=== PATIENT | male | born 1995 | race Caucasian/White ===

== ENCOUNTER 2016-10-29 20:48 | Emergency (ER) | payer OTHER ==
[~2016-10-29] VITALS: Ht 188 cm; Wt 59.1 kg
[2016-10-29] MEDS ORDERED: MAALOX/LIDOCAINE/NYSTATIN SUSP 5 ML ORAL.SYG PO ONE (23:30)
[2016-10-30 00:11] VITALS: BP 120/80
== END 2016-10-30 00:15 | disposition home or self-care (01) ==
LOC: EMS 20:53
DX: K12.1 Other forms of stomatitis (principal); F17.210 Nicotine dependence, cigarettes, uncomplicated; F12.90 Cannabis use, unspecified, uncomplicated; F19.90 Other psychoactive substance use, unspecified, uncomplicated
CPT/HCPCS: 99282

== ENCOUNTER 2016-11-15 07:22 | Inpatient (IN) | payer MEDICAID, OTHER ==
[~2016-11-15] VITALS: Ht 188 cm; Wt 63.6 kg
[2016-11-15] MEDS ORDERED: DIVA125T PO (07:43)
[2016-11-15] MEDS ORDERED: BUPR75 PO (07:43)
[2016-11-15 08:16] LABS: BASOPHILS # (AUTO) 0.06 K/uL (0.00-0.20); BASOPHILS % (AUTO) 0.7 % (0.0-2.0); EOSINOPHILS # (AUTO) 0.08 K/uL (0.00-0.70); EOSINOPHILS % (AUTO) 1.04 % (1.0-6.0); HEMATOCRIT 43.9 % (41-53); LYMPHOCYTES % (AUTO) 12.5 % (22.0-44.0); MEAN CORPUSCULAR HEMOGLOBIN 31.8 pg (26.0-34.0); MEAN CORPUSCULAR HGB CONC 34.1 G/dL (31.0-37.0); MEAN CORPUSCULAR VOLUME 93 fL (80-100); MONOCYTES # (AUTO) 1.1 K/uL (0.1-1.0); NEUTROPHILS # (AUTO) 5.8 K/uL (1.8-7.7); NEUTROPHILS % (AUTO) 71.9 % (40.0-70.0); PLATELET COUNT (AUTO) 295 K/uL (150-450); RED BLOOD CELL COUNT(AUTO) 4.71 MIL/uL (4.50-5.90); RED CELL DISTRIBUTION WIDTH 13.8 % (11.5-14.5); WHITE BLOOD COUNT (AUTO) 8.1 K/uL (4.5-11.0)
[2016-11-15 08:24] LABS: ANION GAP 9 mmol/L (8-16); CALCIUM, TOTAL 9.3 mg/dL (8.8-10.5); CARBON DIOXIDE 29 mmol/L (22-29); CHLORIDE 102 mmol/L (98-107); CREATININE 0.88 mg/dL (0.60-1.30); GLOMERULAR FILTR. RATE CALC > 60 mL/min (>60); POTASSIUM 4.3 mmol/L (3.5-5.1); SODIUM SERUM 140 mmol/L (136-145); UREA NITROGEN, BLOOD 14 mg/dL (7-18)
[2016-11-15 08:30] LABS: ALANINE AMINOTRANSFERASE 94 U/L (12-78); ALBUMIN 4.4 g/dL (3.4-5.0); ASPARTATE AMINOTRANSFERASE 152 U/L (15-37); BILIRUBIN,TOTAL 1.4 mg/dL (0.1-1.0); TOTAL PROTEIN, SERUM 8.1 g/dL (6.4-8.2)
[2016-11-15] MEDS ORDERED: ZOLPIDEM TARTRATE 10 MG TABLET PO PRN (09:45)
[2016-11-15] MEDS ORDERED: HALOPERIDOL 5 MG TABLET PO PRN (09:45)
[2016-11-15 11:15] VITALS: BP 136/68
[2016-11-15] MEDS ORDERED: BACITRACIN 28.4 GM OINTMENT TP PRN (15:15)
[2016-11-15] MEDS: LORazepam 2 MG TABLET PO PRN (21:53)
[2016-11-16 08:15] VITALS: BP 124/83
[2016-11-16] MEDS ORDERED: ALBUTEROL SULFATE HFA 90 MCG/PUFF 8 GM INHALER IH PRN (09:30)
[2016-11-16] MEDS ORDERED: IBUPROFEN 600 MG TABLET PO PRN (09:30)
[2016-11-16] MEDS ORDERED: CloNIDine HCL 0.1 MG TABLET PO PRN (09:30)
[2016-11-16] MEDS ORDERED: ACETAMINOPHEN 325 MG TABLET PO PRN (09:30)
[2016-11-16] MEDS ORDERED: MAGNESIUM HYDROXIDE SUSPENSION 30 ML UDCUP PO PRN (09:30)
[2016-11-16] MEDS ORDERED: PETROLATUM,WHITE 71 GM JELLY TP PRN (09:30)
[2016-11-16] MEDS ORDERED: MAG HYDROX/AL HYDROX/SIMETH ES 30 ML SUSPENSION UDCUP PO PRN (09:30)
[2016-11-16] MEDS ORDERED: ONDANSETRON HCL 4 MG TABLET PO PRN (09:30)
[2016-11-16] MEDS ORDERED: LOPERAMIDE HCL 2 MG CAPSULE PO PRN (09:30)
[2016-11-16] MEDS ORDERED: BENZOCAINE/MENTHOL LOZENGE [8 LOZENGES/PACKET] MM PRN (09:30)
[2016-11-16] MEDS: NICOTINE 21 MG/24 HOUR PATCH TD SCH (12:02)
[2016-11-16] MEDS: MUPIROCIN CALCIUM 2% 15 GM CREAM TP SCH ×2 (12:02→16:11)
[2016-11-16 16:00] VITALS: BP 115/75
[2016-11-16] MEDS: HALOPERIDOL 5 MG TABLET PO SCH (20:04)
[2016-11-17 08:00] LABS: CHOL/HDL RATIO 2.2 (4.2-7.3); THYROID STIMULATING HORMONE 1.91 uIU/mL (0.36-3.74)
[2016-11-17 08:05] VITALS: BP 124/76
[2016-11-17] MEDS: HALOPERIDOL 5 MG TABLET PO SCH ×2 (10:39→20:11)
[2016-11-17] MEDS: MUPIROCIN CALCIUM 2% 15 GM CREAM TP SCH ×2 (10:39→16:27)
[2016-11-17] MEDS: OMEPRAZOLE 20 MG CAPSULE PO SCH (10:39)
[2016-11-17] MEDS: NICOTINE 21 MG/24 HOUR PATCH TD SCH (10:39)
[2016-11-17] MEDS: DOCUSATE SODIUM 100 MG CAPSULE PO SCH (10:39)
[2016-11-17] MEDS ORDERED: CAMPHOR/MENTHOL/PHENOL 10 GM OINTMENT TP PRN (12:00)
[2016-11-17] MEDS: LORazepam 2 MG TABLET PO PRN (16:20)
[2016-11-18 08:40] VITALS: BP 110/69
[2016-11-18] MEDS: OMEPRAZOLE 20 MG CAPSULE PO SCH (09:02)
[2016-11-18] MEDS: NICOTINE 21 MG/24 HOUR PATCH TD SCH (09:02)
[2016-11-18] MEDS: LORazepam 2 MG TABLET PO PRN ×2 (09:02→16:43)
[2016-11-18] MEDS: DOCUSATE SODIUM 100 MG CAPSULE PO SCH (09:02)
[2016-11-18] MEDS: HALOPERIDOL 5 MG TABLET PO SCH (09:02)
[2016-11-18] MEDS: MUPIROCIN CALCIUM 2% 15 GM CREAM TP SCH ×2 (09:02→16:41)
[2016-11-18 16:58] VITALS: BP 115/66
[2016-11-18] MEDS ORDERED: HALOPERIDOL 10 MG TABLET PO SCH (21:00)
[2016-11-19 05:41] LABS: HEPATITIS Bs ANTIGEN SCREEN P Negative (Negative); HEPATITIS C AB SCREEN <0.1 s/co ratio (0.0-0.9)
[2016-11-19] MEDS: NICOTINE 21 MG/24 HOUR PATCH TD SCH (08:57)
[2016-11-19] MEDS: MUPIROCIN CALCIUM 2% 15 GM CREAM TP SCH (08:58)
[2016-11-19] MEDS: OMEPRAZOLE 20 MG CAPSULE PO SCH (08:58)
[2016-11-19] MEDS: DOCUSATE SODIUM 100 MG CAPSULE PO SCH (08:58)
[2016-11-19] MEDS ORDERED: FISH OIL/OMEGA-3 FATTY ACIDS 500 MG CAPSULE PO SCH (09:00)
[2016-11-19] MEDS ORDERED: HALOPERIDOL 5 MG TABLET PO SCH (09:00)
[2016-11-19] MEDS ORDERED: CHOLECALCIFEROL (VIT D3) 1,000 UNITS TABLET PO SCH (09:00)
[2016-11-19 09:19] VITALS: BP 110/73
[2016-11-19] MEDS ORDERED: DSS100 PO (12:03)
[2016-11-19] MEDS ORDERED: OMEG100019 PO (12:05)
[2016-11-19] MEDS ORDERED: HALO5 PO (12:05)
[2016-11-19] MEDS ORDERED: OMEP20 PO (12:06)
[2016-11-19] MEDS ORDERED: HALO10 PO (12:06)
[2016-11-19] MEDS ORDERED: VITAD1000 PO (12:07)
[2016-11-19] MEDS ORDERED: OMEG100033 PO (12:31)
== END 2016-11-19 15:10 | disposition home or self-care (01) | DRG 753 ==
LOC: EMS 07:23 → 3EI 10:52
DX: F31.9 Bipolar disorder, unspecified (principal); R45.851 Suicidal ideations; F20.0 Paranoid schizophrenia; R74.0 Nonspecific elevation of levels of transaminase and lactic acid dehydrogenase [LDH]; F43.10 Post-traumatic stress disorder, unspecified; M54.5 Low back pain; K59.00 Constipation, unspecified; F17.210 Nicotine dependence, cigarettes, uncomplicated; F11.90 Opioid use, unspecified, uncomplicated; F15.10 Other stimulant abuse, uncomplicated; Z79.899 Other long term (current) drug therapy; Z59.0 Homelessness; Z71.51 Drug abuse counseling and surveillance of drug abuser; Z71.6 Tobacco abuse counseling; T14.8 Other injury of unspecified body region; X58.XXXA Exposure to other specified factors, initial encounter; Y93.89 Activity, other specified; Y92.89 Other specified places as the place of occurrence of the external cause; Y99.8 Other external cause status
CPT/HCPCS: 80074; 82306; 84443; 99285; G0480; Q0162

== ENCOUNTER 2017-05-01 16:46 | Emergency (ER) | payer MEDICAID, OTHER ==
[~2017-05-01] VITALS: Ht 175.3 cm; Wt 65.9 kg
[~2017-05-01 16:46] MED LIST: DSS100 PO; HALO10 PO; HALO5 PO; OMEG100033 PO; OMEP20 PO; VITAD1000 PO
[2017-05-01] MEDS ORDERED: IBUPROFEN 800 MG TABLET PO ONE (18:00)
[2017-05-01 18:31] VITALS: BP 146/102
== END 2017-05-01 18:55 | disposition home or self-care (01) ==
LOC: EDUNIT# 16:46 → EMS 16:48
DX: K12.0 Recurrent oral aphthae (principal); K13.70 Unspecified lesions of oral mucosa; F17.210 Nicotine dependence, cigarettes, uncomplicated; F15.10 Other stimulant abuse, uncomplicated; F25.9 Schizoaffective disorder, unspecified; F43.10 Post-traumatic stress disorder, unspecified; Z59.0 Homelessness
CPT/HCPCS: 99283; 99406

== ENCOUNTER 2017-05-03 03:05 | Emergency (ER) | payer OTHER ==
[~2017-05-03] VITALS: Ht 188 cm; Wt 68.2 kg
[2017-05-03 03:50] LABS: BASOPHILS # (AUTO) 0.08 K/uL (0.00-0.20); BASOPHILS % (AUTO) 1.1 % (0.0-2.0); EOSINOPHILS # (AUTO) 0.39 K/uL (0.00-0.70); HEMATOCRIT 37.7 % (41-53); HEMOGLOBIN 12.8 g/dL (13.5-17.5); LYMPHOCYTES # (AUTO) 1.7 K/uL (1.0-4.8); LYMPHOCYTES % (AUTO) 25.1 % (22.0-44.0); MEAN CORPUSCULAR HEMOGLOBIN 31.2 pg (26.0-34.0); MEAN CORPUSCULAR VOLUME 92 fL (80-100); MONOCYTES # (AUTO) 0.8 K/uL (0.1-1.0); MONOCYTES % (AUTO) 11.5 % (2.0-9.0); NEUTROPHILS # (AUTO) 3.9 K/uL (1.8-7.7); NEUTROPHILS % (AUTO) 56.5 % (40.0-70.0); PLATELET COUNT (AUTO) 205 K/uL (150-450); RED BLOOD CELL COUNT(AUTO) 4.12 MIL/uL (4.50-5.90); RED CELL DISTRIBUTION WIDTH 13.2 % (11.5-14.5); WHITE BLOOD COUNT (AUTO) 6.9 K/uL (4.5-11.0)
[2017-05-03 04:01] LABS: ANION GAP 9 mmol/L (8-16); CALCIUM, TOTAL 9.2 mg/dL (8.8-10.5); CARBON DIOXIDE 28 mmol/L (22-29); CHLORIDE 107 mmol/L (98-107); CREATININE 0.69 mg/dL (0.60-1.30); GLOMERULAR FILTR. RATE CALC > 60 mL/min (>60); POTASSIUM 4.3 mmol/L (3.5-5.1); SODIUM SERUM 144 mmol/L (136-145); UREA NITROGEN, BLOOD 10 mg/dL (7-18)
[2017-05-03 04:08] LABS: ALANINE AMINOTRANSFERASE 79 U/L (12-78); ALBUMIN 3.7 g/dL (3.4-5.0); ASPARTATE AMINOTRANSFERASE 102 U/L (15-37); BILIRUBIN,TOTAL 0.3 mg/dL (0.1-1.0); TOTAL PROTEIN, SERUM 6.8 g/dL (6.4-8.2)
[2017-05-03] MEDS ORDERED: LORazepam 2 MG TABLET PO ONE (04:15)
[2017-05-03] MEDS ORDERED: HALOPERIDOL 5 MG TABLET PO ONE (04:15)
[2017-05-03] MEDS ORDERED: DiphenhydrAMINE HCL 25 MG CAPSULE PO ONE (04:15)
[2017-05-03] MEDS ORDERED: MAALOX/LIDOCAINE/NYSTATIN SUSP 5 ML ORAL.SYG PO ONE (04:15)
[2017-05-03 05:55] VITALS: BP 128/74
== END 2017-05-03 06:01 | disposition home or self-care (01) ==
LOC: EMS 03:07
DX: F41.9 Anxiety disorder, unspecified (principal); F20.9 Schizophrenia, unspecified; F17.210 Nicotine dependence, cigarettes, uncomplicated; F19.90 Other psychoactive substance use, unspecified, uncomplicated
CPT/HCPCS: 36415; 80053; 80307; 85025; 99284; G0480

== ENCOUNTER 2017-05-05 16:12 | Emergency (ER) | payer OTHER ==
[~2017-05-05] VITALS: Ht 188 cm; Wt 77.3 kg
[2017-05-05 17:35] LABS: BASOPHILS % (AUTO) 0.7 % (0.0-2.0); EOSINOPHILS % (AUTO) 0.6 % (1.0-6.0); HEMATOCRIT 40.6 % (41-53); LYMPHOCYTES # (AUTO) 1.7 K/uL (1.0-4.8); LYMPHOCYTES % (AUTO) 16.1 % (22.0-44.0); MEAN CORPUSCULAR HGB CONC 34.4 G/dL (31.0-37.0); MEAN CORPUSCULAR VOLUME 90 fL (80-100); MONOCYTES # (AUTO) 0.8 K/uL (0.1-1.0); MONOCYTES % (AUTO) 8.1 % (2.0-9.0); NEUTROPHILS # (AUTO) 7.7 K/uL (1.8-7.7); NEUTROPHILS % (AUTO) 74.5 % (40.0-70.0); PLATELET COUNT (AUTO) 268 K/uL (150-450); RED BLOOD CELL COUNT(AUTO) 4.51 MIL/uL (4.50-5.90); RED CELL DISTRIBUTION WIDTH 13.1 % (11.5-14.5); WHITE BLOOD COUNT (AUTO) 10.4 K/uL (4.5-11.0)
[2017-05-05 17:44] LABS: ANION GAP 15 mmol/L (8-16); CALCIUM, TOTAL 9.4 mg/dL (8.8-10.5); CARBON DIOXIDE 24 mmol/L (22-29); CHLORIDE 101 mmol/L (98-107); CREATININE 0.91 mg/dL (0.60-1.30); GLOMERULAR FILTR. RATE CALC > 60 mL/min (>60); POTASSIUM 3.6 mmol/L (3.5-5.1); SODIUM SERUM 140 mmol/L (136-145); UREA NITROGEN, BLOOD 20 mg/dL (7-18)
[2017-05-05 17:52] LABS: ALANINE AMINOTRANSFERASE 74 U/L (12-78); ALBUMIN 4.5 g/dL (3.4-5.0); ASPARTATE AMINOTRANSFERASE 71 U/L (15-37); TOTAL PROTEIN, SERUM 7.8 g/dL (6.4-8.2)
[2017-05-05 18:49] VITALS: BP 137/91
[2017-05-05] MEDS ORDERED: ACETAMINOPHEN 500 MG TABLET PO ONE (20:15)
== END 2017-05-05 20:23 | disposition home or self-care (01) ==
LOC: EMS 16:13
DX: F41.9 Anxiety disorder, unspecified (principal); F15.10 Other stimulant abuse, uncomplicated; F20.9 Schizophrenia, unspecified; F17.210 Nicotine dependence, cigarettes, uncomplicated
CPT/HCPCS: 36415; 80053; 80307; 85025; 99284; G0480

== ENCOUNTER 2017-05-05 21:43 | Emergency (ER) | payer OTHER ==
[~2017-05-05] VITALS: Ht 188 cm; Wt 77.3 kg
[2017-05-06 00:05] LABS: BASOPHILS % (AUTO) 0.6 % (0.0-2.0); EOSINOPHILS % (AUTO) 2.1 % (1.0-6.0); HEMATOCRIT 41.4 % (41-53); HEMOGLOBIN 14.2 g/dL (13.5-17.5); LYMPHOCYTES % (AUTO) 20.2 % (22.0-44.0); MEAN CORPUSCULAR HEMOGLOBIN 31.4 pg (26.0-34.0); MEAN CORPUSCULAR HGB CONC 34.3 G/dL (31.0-37.0); MEAN CORPUSCULAR VOLUME 91 fL (80-100); MONOCYTES # (AUTO) 1.1 K/uL (0.1-1.0); MONOCYTES % (AUTO) 10.6 % (2.0-9.0); NEUTROPHILS # (AUTO) 6.8 K/uL (1.8-7.7); NEUTROPHILS % (AUTO) 66.5 % (40.0-70.0); PLATELET COUNT (AUTO) 280 K/uL (150-450); RED BLOOD CELL COUNT(AUTO) 4.53 MIL/uL (4.50-5.90); RED CELL DISTRIBUTION WIDTH 13.7 % (11.5-14.5); WHITE BLOOD COUNT (AUTO) 10.2 K/uL (4.5-11.0)
[2017-05-06 00:11] LABS: ANION GAP 12 mmol/L (8-16); CALCIUM, TOTAL 9.2 mg/dL (8.8-10.5); CARBON DIOXIDE 25 mmol/L (22-29); CHLORIDE 103 mmol/L (98-107); CREATININE 0.96 mg/dL (0.60-1.30); GLOMERULAR FILTR. RATE CALC > 60 mL/min (>60); POTASSIUM 4.2 mmol/L (3.5-5.1); SODIUM SERUM 140 mmol/L (136-145); UREA NITROGEN, BLOOD 22 mg/dL (7-18)
[2017-05-06] MEDS ORDERED: HALOPERIDOL LACTATE 5 MG/ML VIAL IM ONE (00:15)
[2017-05-06] MEDS ORDERED: DiphenhydrAMINE HCL 50 MG/ML VIAL IM ONE (00:15)
[2017-05-06] MEDS ORDERED: LORazepam 2 MG/ML VIAL IM ONE (00:15)
[2017-05-06 00:17] LABS: ALANINE AMINOTRANSFERASE 71 U/L (12-78); ASPARTATE AMINOTRANSFERASE 66 U/L (15-37); BILIRUBIN,TOTAL 0.8 mg/dL (0.1-1.0); TOTAL PROTEIN, SERUM 7.7 g/dL (6.4-8.2)
[2017-05-06 00:24] LABS: ALBUMIN 4.2 g/dL (3.4-5.0)
[2017-05-06 06:07] VITALS: BP 126/67
== END 2017-05-06 06:14 | disposition home or self-care (01) ==
LOC: EMS 21:44
DX: F91.9 Conduct disorder, unspecified (principal); F15.10 Other stimulant abuse, uncomplicated; F25.9 Schizoaffective disorder, unspecified; F43.10 Post-traumatic stress disorder, unspecified; F17.210 Nicotine dependence, cigarettes, uncomplicated
CPT/HCPCS: 36415; 80053; 85025; 96372; 99291; G0480; J1200; J1630; J2060

== ENCOUNTER 2017-05-10 12:43 | Emergency (ER) | payer OTHER ==
[~2017-05-10] VITALS: Ht 188 cm; Wt 77.3 kg
[2017-05-10 13:18] VITALS: BP 142/79
== END 2017-05-10 16:08 | disposition left against medical advice (07) ==
LOC: EMS 12:48
DX: R21 Rash and other nonspecific skin eruption (principal); R45.1 Restlessness and agitation; R45.0 Nervousness; F15.10 Other stimulant abuse, uncomplicated; F17.210 Nicotine dependence, cigarettes, uncomplicated
CPT/HCPCS: 99281; 99283

== ENCOUNTER 2017-06-06 22:45 | Emergency (ER) | payer OTHER ==
[~2017-06-06] VITALS: Ht 188 cm; Wt 77.0 kg
[2017-06-07] MEDS ORDERED: MAALOX/LIDOCAINE/NYSTATIN SUSP 5 ML ORAL.SYG PO ONE (00:45)
[2017-06-07 01:26] LABS: BASOPHILS # (AUTO) 0.14 K/uL (0.00-0.20); BASOPHILS % (AUTO) 1.2 % (0.0-2.0); EOSINOPHILS # (AUTO) 0.04 K/uL (0.00-0.70); EOSINOPHILS % (AUTO) 0.32 % (1.0-6.0); HEMATOCRIT 41.6 % (41-53); HEMOGLOBIN 14.3 g/dL (13.5-17.5); LYMPHOCYTES # (AUTO) 2.2 K/uL (1.0-4.8); LYMPHOCYTES % (AUTO) 18.8 % (22.0-44.0); MEAN CORPUSCULAR HEMOGLOBIN 31.9 pg (26.0-34.0); MEAN CORPUSCULAR HGB CONC 34.4 G/dL (31.0-37.0); MEAN CORPUSCULAR VOLUME 93 fL (80-100); MONOCYTES # (AUTO) 1.2 K/uL (0.1-1.0); MONOCYTES % (AUTO) 10.4 % (2.0-9.0); NEUTROPHILS # (AUTO) 8.2 K/uL (1.8-7.7); NEUTROPHILS % (AUTO) 69.3 % (40.0-70.0); PLATELET COUNT (AUTO) 272 K/uL (150-450); RED BLOOD CELL COUNT(AUTO) 4.48 MIL/uL (4.50-5.90); RED CELL DISTRIBUTION WIDTH 13.9 % (11.5-14.5); WHITE BLOOD COUNT (AUTO) 11.8 K/uL (4.5-11.0)
[2017-06-07 01:36] LABS: ANION GAP 12 mmol/L (8-16); CARBON DIOXIDE 25 mmol/L (22-29); CHLORIDE 102 mmol/L (98-107); CREATININE 0.75 mg/dL (0.60-1.30); SODIUM SERUM 139 mmol/L (136-145); UREA NITROGEN, BLOOD 15 mg/dL (7-18)
[2017-06-07 01:37] LABS: CALCIUM, TOTAL 9.3 mg/dL (8.8-10.5); GLOMERULAR FILTR. RATE CALC > 60 mL/min (>60)
[2017-06-07 01:42] LABS: ALANINE AMINOTRANSFERASE 35 U/L (12-78); ALBUMIN 4.4 g/dL (3.4-5.0); ASPARTATE AMINOTRANSFERASE 41 U/L (15-37); BILIRUBIN,TOTAL 0.6 mg/dL (0.1-1.0); TOTAL PROTEIN, SERUM 7.8 g/dL (6.4-8.2)
[2017-06-07 03:24] VITALS: BP 130/68
== END 2017-06-07 03:54 | disposition home or self-care (01) ==
LOC: EMS 22:48
DX: F25.9 Schizoaffective disorder, unspecified (principal); M16.0 Bilateral primary osteoarthritis of hip; F43.10 Post-traumatic stress disorder, unspecified; F17.210 Nicotine dependence, cigarettes, uncomplicated; F15.10 Other stimulant abuse, uncomplicated; Z59.0 Homelessness
CPT/HCPCS: 36415; 80053; 80307; 85025; 99284; G0480

== ENCOUNTER 2017-06-11 21:48 | Emergency (ER) | payer OTHER ==
[~2017-06-11] VITALS: Ht 185.4 cm; Wt 77.0 kg
[2017-06-11 22:03] VITALS: BP 126/87
== END 2017-06-11 22:42 | disposition home or self-care (01) ==
LOC: EMS 21:54
DX: L98.9 Disorder of the skin and subcutaneous tissue, unspecified (principal); F17.210 Nicotine dependence, cigarettes, uncomplicated; F19.90 Other psychoactive substance use, unspecified, uncomplicated; Z59.0 Homelessness
CPT/HCPCS: 99282

== ENCOUNTER 2017-06-26 14:24 | Inpatient (IN) | payer MEDICAID ==
[~2017-06-26] VITALS: Ht 188 cm; Wt 60.9 kg
[2017-06-26 14:42] VITALS: BP 123/83
[2017-06-26] MEDS ORDERED: INFLUENZA VIRUS VACCINE QVS 2017-18 (3YR+)/PF 60 MCG/0.5 ML SYRINGE IM ONE (15:45)
[2017-06-26 17:28] VITALS: BP 142/82
[2017-06-26] MEDS ORDERED: ACETAMINOPHEN 325 MG TABLET PO PRN (18:30)
[2017-06-26] MEDS ORDERED: IBUPROFEN 600 MG TABLET PO PRN (18:30)
[2017-06-26] MEDS: LORazepam 2 MG TABLET PO PRN (18:54)
[2017-06-26] MEDS: ZOLPIDEM TARTRATE 10 MG TABLET PO PRN (21:00)
[2017-06-27 06:32] VITALS: BP 122/76
[2017-06-27] MEDS: NICOTINE 21 MG/24 HOUR PATCH TD SCH (08:09)
[2017-06-27] MEDS: CLOTRIMAZOLE 1% 15 GM CREAM TP SCH ×2 (08:11→17:06)
[2017-06-27 08:17] VITALS: BP 110/60
[2017-06-27 08:19] LABS: BASOPHILS # (AUTO) 0.06 K/uL (0.00-0.20); BASOPHILS % (AUTO) 1.3 % (0.0-2.0); EOSINOPHILS % (AUTO) 4.52 % (1.0-6.0); HEMATOCRIT 42.8 % (41-53); HEMOGLOBIN 14.3 g/dL (13.5-17.5); LYMPHOCYTES # (AUTO) 1.2 K/uL (1.0-4.8); LYMPHOCYTES % (AUTO) 28.2 % (22.0-44.0); MEAN CORPUSCULAR HEMOGLOBIN 31.7 pg (26.0-34.0); MEAN CORPUSCULAR HGB CONC 33.3 G/dL (31.0-37.0); MEAN CORPUSCULAR VOLUME 95 fL (80-100); MONOCYTES # (AUTO) 0.7 K/uL (0.1-1.0); MONOCYTES % (AUTO) 15.9 % (2.0-9.0); NEUTROPHILS # (AUTO) 2.2 K/uL (1.8-7.7); NEUTROPHILS % (AUTO) 50.1 % (40.0-70.0); PLATELET COUNT (AUTO) 222 K/uL (150-450); RED BLOOD CELL COUNT(AUTO) 4.51 MIL/uL (4.50-5.90); RED CELL DISTRIBUTION WIDTH 14.6 % (11.5-14.5); WHITE BLOOD COUNT (AUTO) 4.4 K/uL (4.5-11.0)
[2017-06-27 08:40] LABS: ALANINE AMINOTRANSFERASE 51 U/L (12-78); ALBUMIN 3.6 g/dL (3.4-5.0); ANION GAP 6 mmol/L (8-16); ASPARTATE AMINOTRANSFERASE 37 U/L (15-37); BILIRUBIN,TOTAL 0.9 mg/dL (0.1-1.0); CALCIUM, TOTAL 8.7 mg/dL (8.8-10.5); CARBON DIOXIDE 29 mmol/L (22-29); CHLORIDE 106 mmol/L (98-107); CREATININE 0.77 mg/dL (0.60-1.30); GLOMERULAR FILTR. RATE CALC > 60 mL/min (>60); POTASSIUM 4.6 mmol/L (3.5-5.1); SODIUM SERUM 141 mmol/L (136-145); THYROID STIMULATING HORMONE 0.72 uIU/mL (0.36-3.74); TOTAL PROTEIN, SERUM 6.3 g/dL (6.4-8.2); UREA NITROGEN, BLOOD 13 mg/dL (7-18)
[2017-06-27] MEDS: HALOPERIDOL 5 MG TABLET PO SCH (10:00)
[2017-06-27 16:00] VITALS: BP 112/66
[2017-06-27] MEDS: ZOLPIDEM TARTRATE 10 MG TABLET PO PRN (20:32)
[2017-06-27] MEDS: HALOPERIDOL 10 MG TABLET PO SCH (20:32)
[2017-06-28 07:16] VITALS: BP 112/70
[2017-06-28 08:25] VITALS: BP 108/61
[2017-06-28] MEDS: NICOTINE 21 MG/24 HOUR PATCH TD SCH (09:44)
[2017-06-28] MEDS: HALOPERIDOL 5 MG TABLET PO SCH (09:44)
[2017-06-28] MEDS: CLOTRIMAZOLE 1% 15 GM CREAM TP SCH ×2 (09:45→16:51)
[2017-06-28 16:21] VITALS: BP 125/80
[2017-06-28] MEDS: HALOPERIDOL 10 MG TABLET PO SCH (20:17)
[2017-06-28] MEDS: ZOLPIDEM TARTRATE 10 MG TABLET PO PRN (20:25)
[2017-06-29 00:05] VITALS: BP 106/63
[2017-06-29 08:39] VITALS: BP 103/61
[2017-06-29] MEDS: HALOPERIDOL 5 MG TABLET PO SCH (09:11)
[2017-06-29] MEDS: NICOTINE 21 MG/24 HOUR PATCH TD SCH (09:11)
[2017-06-29] MEDS: CLOTRIMAZOLE 1% 15 GM CREAM TP SCH ×2 (09:12→16:56)
[2017-06-29] MEDS: LORazepam 2 MG TABLET PO PRN (12:32)
[2017-06-29 12:34] VITALS: BP 110/66
[2017-06-29 17:34] VITALS: BP 113/57
[2017-06-29] MEDS: HALOPERIDOL 10 MG TABLET PO SCH (20:25)
[2017-06-30 03:40] VITALS: BP 111/62
[2017-06-30 08:28] VITALS: BP 112/68
[2017-06-30] MEDS: HALOPERIDOL 5 MG TABLET PO SCH (09:19)
[2017-06-30] MEDS: NICOTINE 21 MG/24 HOUR PATCH TD SCH (09:19)
[2017-06-30] MEDS: CLOTRIMAZOLE 1% 15 GM CREAM TP SCH ×2 (09:19→17:01)
[2017-06-30] MEDS ORDERED: HALOPERIDOL 5 MG TABLET PO SCH (09:45)
[2017-06-30 16:25] VITALS: BP 123/75
[2017-06-30] MEDS: LORazepam 2 MG TABLET PO PRN (17:11)
[2017-06-30] MEDS: HALOPERIDOL 10 MG TABLET PO SCH (20:45)
[2017-07-01 06:11] VITALS: BP 116/60
[2017-07-01 08:57] VITALS: BP 126/65
[2017-07-01] MEDS: CLOTRIMAZOLE 1% 15 GM CREAM TP SCH (09:01)
[2017-07-01] MEDS: HALOPERIDOL 5 MG TABLET PO SCH (09:01)
[2017-07-01] MEDS: NICOTINE 21 MG/24 HOUR PATCH TD SCH (09:01)
[2017-07-01] MEDS ORDERED: HALO10 PO (11:13)
[2017-07-01] MEDS ORDERED: HALO5 PO (11:13)
[2017-07-01] MEDS ORDERED: CLOT15CR62 TP (11:28)
== END 2017-07-01 11:50 | disposition home or self-care (01) | DRG 750 ==
LOC: B2S 15:29 → B3A 17:38 → B2S 06-28 16:00
PROVIDERS: ADMIT Psychiatry & Neurology Child & Adolescent Psychiatry; ATTEND Psychiatry & Neurology Child & Adolescent Psychiatry
DX: F25.1 Schizoaffective disorder, depressive type (principal); Z59.0 Homelessness; D64.9 Anemia, unspecified; D72.819 Decreased white blood cell count, unspecified; F12.90 Cannabis use, unspecified, uncomplicated; F15.90 Other stimulant use, unspecified, uncomplicated; R79.89 Other specified abnormal findings of blood chemistry; Z87.891 Personal history of nicotine dependence
CPT/HCPCS: 84439; 84443; 90471

== ENCOUNTER 2017-07-06 03:35 | Emergency (ER) | payer MEDICAID, OTHER ==
[~2017-07-06] VITALS: Ht 185.4 cm; Wt 65.9 kg
[~2017-07-06 03:35] MED LIST changes: +CLOT15CR62 TP; -DSS100 PO; -OMEG100033 PO; -OMEP20 PO; -VITAD1000 PO
[2017-07-06 05:25] VITALS: BP 114/69
[2017-07-06] MEDS ORDERED: ACETAMINOPHEN 500 MG TABLET PO ONE (05:30)
== END 2017-07-06 06:18 | disposition home or self-care (01) ==
LOC: EMS 03:36
DX: M25.551 Pain in right hip (principal); F25.9 Schizoaffective disorder, unspecified; F17.210 Nicotine dependence, cigarettes, uncomplicated; I10 Essential (primary) hypertension; F12.10 Cannabis abuse, uncomplicated; Z59.0 Homelessness
CPT/HCPCS: 99283; 99406

== ENCOUNTER 2017-07-09 02:01 | Emergency (ER) | payer OTHER ==
[~2017-07-09] VITALS: Ht 175.3 cm; Wt 75.0 kg
[2017-07-09] MEDS ORDERED: HALOPERIDOL 5 MG TABLET PO ONE (04:45)
[2017-07-09] MEDS ORDERED: LORazepam 2 MG TABLET PO ONE (04:45)
[2017-07-09 05:06] VITALS: BP 131/79
== END 2017-07-09 05:08 | disposition home or self-care (01) ==
LOC: EMS 02:02
DX: F25.9 Schizoaffective disorder, unspecified (principal); R51 Headache; F45.0 Somatization disorder; F17.210 Nicotine dependence, cigarettes, uncomplicated; F12.90 Cannabis use, unspecified, uncomplicated
CPT/HCPCS: 99284; 99406

== ENCOUNTER 2017-07-10 11:47 | Emergency (ER) | payer OTHER ==
[~2017-07-10] VITALS: Ht 188 cm; Wt 77.3 kg
[2017-07-10 11:51] VITALS: BP 144/94
== END 2017-07-10 12:30 | disposition left against medical advice (07) ==
LOC: EMS 11:50
DX: Z53.21 Procedure and treatment not carried out due to patient leaving prior to being seen by health care provider (principal)

== ENCOUNTER 2017-07-12 16:37 | Emergency (ER) | payer OTHER ==
[~2017-07-12] VITALS: Ht 188 cm; Wt 77.3 kg
[2017-07-12] MEDS ORDERED: IBUPROFEN 800 MG TABLET PO ONE (18:00)
[2017-07-12] MEDS ORDERED: BACITRACIN 0.9 GM PACKET OINTMENT TP ONE (18:00)
[2017-07-12 19:12] VITALS: BP 128/77
== END 2017-07-12 19:35 | disposition home or self-care (01) ==
LOC: EMS 16:39
DX: S73.102A Unspecified sprain of left hip, initial encounter (principal); S10.91XA Abrasion of unspecified part of neck, initial encounter; L08.9 Local infection of the skin and subcutaneous tissue, unspecified; F17.210 Nicotine dependence, cigarettes, uncomplicated; Y09 Assault by unspecified means; Y93.89 Activity, other specified; Y92.89 Other specified places as the place of occurrence of the external cause; Y99.8 Other external cause status
CPT/HCPCS: 73503; 99284

== ENCOUNTER 2017-07-25 21:15 | Emergency (ER) | payer OTHER ==
[~2017-07-25] VITALS: Ht 188 cm; Wt 77.0 kg
[2017-07-25 21:22] VITALS: BP 142/65
[2017-07-25] MEDS ORDERED: IBUPROFEN 800 MG TABLET PO ONE (21:45)
== END 2017-07-25 21:53 | disposition home or self-care (01) ==
LOC: EMS 21:17
DX: S70.01XA Contusion of right hip, initial encounter (principal); F17.210 Nicotine dependence, cigarettes, uncomplicated; Z59.0 Homelessness; W18.30XA Fall on same level, unspecified, initial encounter; Y93.01 Activity, walking, marching and hiking; Y92.89 Other specified places as the place of occurrence of the external cause; Y99.8 Other external cause status
CPT/HCPCS: 99282

== ENCOUNTER 2017-08-01 16:05 | Inpatient (IN) | payer MEDICAID, OTHER ==
[~2017-08-01] VITALS: Ht 188 cm; Wt 68.0 kg
[2017-08-01 17:27] LABS: BASOPHILS % (AUTO) 1.1 % (0.0-2.0); EOSINOPHILS % (AUTO) 1.2 % (1.0-6.0); HEMATOCRIT 42.9 % (41-53); LYMPHOCYTES # (AUTO) 1.8 K/uL (1.0-4.8); LYMPHOCYTES % (AUTO) 21.5 % (22.0-44.0); MEAN CORPUSCULAR HEMOGLOBIN 32.1 pg (26.0-34.0); MEAN CORPUSCULAR HGB CONC 34.9 G/dL (31.0-37.0); MEAN CORPUSCULAR VOLUME 92 fL (80-100); MONOCYTES # (AUTO) 0.9 K/uL (0.1-1.0); MONOCYTES % (AUTO) 11.6 % (2.0-9.0); NEUTROPHILS # (AUTO) 5.3 K/uL (1.8-7.7); NEUTROPHILS % (AUTO) 64.6 % (40.0-70.0); PLATELET COUNT (AUTO) 309 K/uL (150-450); RED BLOOD CELL COUNT(AUTO) 4.67 MIL/uL (4.50-5.90); RED CELL DISTRIBUTION WIDTH 13.5 % (11.5-14.5); WHITE BLOOD COUNT (AUTO) 8.2 K/uL (4.5-11.0)
[2017-08-01 17:32] LABS: ANION GAP 9 mmol/L (8-16); CALCIUM, TOTAL 9.7 mg/dL (8.8-10.5); CARBON DIOXIDE 28 mmol/L (22-29); CHLORIDE 104 mmol/L (98-107); CREATININE 1.28 mg/dL (0.60-1.30); GLOMERULAR FILTR. RATE CALC > 60 mL/min (>60); SODIUM SERUM 141 mmol/L (136-145); UREA NITROGEN, BLOOD 22 mg/dL (7-18)
[2017-08-01 17:38] LABS: ALANINE AMINOTRANSFERASE 26 U/L (12-78); ASPARTATE AMINOTRANSFERASE 23 U/L (15-37); BILIRUBIN,TOTAL 0.3 mg/dL (0.1-1.0); TOTAL PROTEIN, SERUM 7.4 g/dL (6.4-8.2)
[2017-08-01] MEDS ORDERED: HALOPERIDOL 5 MG TABLET PO ONE ×2 (19:15→20:15)
[2017-08-01] MEDS ORDERED: LORazepam 2 MG TABLET PO ONE (20:15)
[2017-08-01] MEDS ORDERED: ZINC OXIDE 16% PASTE 57 GM TUBE TP ONE (20:15)
[2017-08-01] MEDS ORDERED: DiphenhydrAMINE HCL 25 MG CAPSULE PO ONE (20:15)
[2017-08-01] MEDS ORDERED: LORazepam 2 MG/ML VIAL IM ONE (21:00)
[2017-08-01] MEDS ORDERED: DiphenhydrAMINE HCL 50 MG/ML VIAL IM ONE (21:00)
[2017-08-01] MEDS ORDERED: HALOPERIDOL LACTATE 5 MG/ML VIAL IM ONE (21:00)
[2017-08-01] MEDS ORDERED: MAG HYDROX/AL HYDROX/SIMETH ES 30 ML SUSPENSION UDCUP PO PRN (21:45)
[2017-08-01] MEDS ORDERED: ACETAMINOPHEN 325 MG TABLET PO PRN (21:45)
[2017-08-01] MEDS ORDERED: MAGNESIUM HYDROXIDE SUSPENSION 30 ML UDCUP PO PRN (21:45)
[2017-08-01] MEDS ORDERED: HALOPERIDOL 5 MG TABLET PO PRN (21:45)
[2017-08-01] MEDS ORDERED: ZOLPIDEM TARTRATE 10 MG TABLET PO PRN (21:45)
[2017-08-02 06:05] LABS: CHOL/HDL RATIO 2.1 (4.2-7.3)
[2017-08-02] MEDS ORDERED: POVIDONE-IODINE 10% 15 ML SOLUTION UD ONE (17:34)
[2017-08-03] MEDS: LORazepam 2 MG TABLET PO PRN ×2 (00:43→20:21)
[2017-08-03 00:47] VITALS: BP 111/68
[2017-08-03] MEDS ORDERED: INFLUENZA VIRUS VACCINE QVS 2017-18 (3YR+)/PF 60 MCG/0.5 ML SYRINGE IM ONE (01:30)
[2017-08-03 08:16] VITALS: BP 127/62
[2017-08-03] MEDS ORDERED: PETROLATUM,WHITE 71 GM JELLY TP PRN (08:45)
[2017-08-03] MEDS ORDERED: LOPERAMIDE HCL 2 MG CAPSULE PO PRN (08:45)
[2017-08-03] MEDS ORDERED: IBUPROFEN 600 MG TABLET PO PRN (08:45)
[2017-08-03] MEDS ORDERED: ALBUTEROL SULFATE HFA 90 MCG/PUFF 8 GM INHALER IH PRN (08:45)
[2017-08-03] MEDS ORDERED: CloNIDine HCL 0.1 MG TABLET PO PRN (08:45)
[2017-08-03] MEDS ORDERED: BACITRACIN 28.4 GM OINTMENT TP PRN (08:45)
[2017-08-03] MEDS ORDERED: ONDANSETRON HCL 4 MG TABLET PO PRN (08:45)
[2017-08-03] MEDS ORDERED: BENZOCAINE/MENTHOL LOZENGE MM PRN (08:45)
[2017-08-03] MEDS: MULTIVITAMINS WITH MINERALS, THERAPEUTIC TABLET PO SCH (09:19)
[2017-08-03] MEDS: ARIPiprazole 15 MG TABLET PO SCH (13:17)
[2017-08-03 16:00] VITALS: BP 110/66
[2017-08-03] MEDS: MIRTAZAPINE 15 MG TABLET PO SCH (20:21)
[2017-08-04 06:47] VITALS: BP 115/70
[2017-08-04 08:05] VITALS: BP 123/62
[2017-08-04] MEDS: LORazepam 2 MG TABLET PO PRN ×2 (08:22→17:57)
[2017-08-04] MEDS: MULTIVITAMINS WITH MINERALS, THERAPEUTIC TABLET PO SCH (08:22)
[2017-08-04] MEDS: ARIPiprazole 15 MG TABLET PO SCH (08:22)
[2017-08-04 16:00] VITALS: BP 130/76
[2017-08-04] MEDS: MIRTAZAPINE 15 MG TABLET PO SCH (20:56)
[2017-08-05 06:28] VITALS: BP 127/88
[2017-08-05] MEDS: MULTIVITAMINS WITH MINERALS, THERAPEUTIC TABLET PO SCH (08:58)
[2017-08-05] MEDS: ARIPiprazole 15 MG TABLET PO SCH (08:58)
[2017-08-05 09:15] VITALS: BP 113/73
[2017-08-05] MEDS ORDERED: ARIP15TA2 PO (11:39)
[2017-08-05] MEDS ORDERED: MIRT15 PO (11:39)
== END 2017-08-05 12:25 | disposition home or self-care (01) | DRG 750 ==
LOC: EMS 16:07 → UNDOADMIN 08-02 19:39 → B2S 08-02 19:39 → B3A 08-02 22:25
PROVIDERS: ADMIT Psychiatry & Neurology Psychiatry; ATTEND Psychiatry & Neurology Child & Adolescent Psychiatry
PROC: 3E0234Z Introduction of Serum, Toxoid and Vaccine into Muscle, Percutaneous Approach (ICD-10-PCS; principal; 2017-08-03)
DX: F25.1 Schizoaffective disorder, depressive type (principal); Z59.0 Homelessness; E55.9 Vitamin D deficiency, unspecified; F17.210 Nicotine dependence, cigarettes, uncomplicated; F12.90 Cannabis use, unspecified, uncomplicated; F15.10 Other stimulant abuse, uncomplicated; F41.9 Anxiety disorder, unspecified; Z71.51 Drug abuse counseling and surveillance of drug abuser; Z68.1 Body mass index [BMI] 19.9 or less, adult; Z23 Encounter for immunization; Z79.899 Other long term (current) drug therapy
CPT/HCPCS: 87081; 90471; 96372; 99285; G0480; J1200; J1630; J2060

== ENCOUNTER 2017-08-07 22:17 | Emergency (ER) | payer MEDICAID ==
[~2017-08-07] VITALS: Ht 188 cm; Wt 77.3 kg
[~2017-08-07 22:17] MED LIST changes: +ARIP15TA2 PO; -CLOT15CR62 TP; -HALO10 PO; -HALO5 PO; +MIRT15 PO
[2017-08-07 22:18] VITALS: BP 143/77
== END 2017-08-07 23:06 | disposition left against medical advice (07) ==
LOC: EMS 22:18
DX: R51 Headache (principal); F17.210 Nicotine dependence, cigarettes, uncomplicated; Z53.21 Procedure and treatment not carried out due to patient leaving prior to being seen by health care provider

== ENCOUNTER 2017-08-07 23:28 | Emergency (ER) | payer MEDICAID, OTHER ==
[~2017-08-07] VITALS: Ht 182.9 cm; Wt 77.3 kg
[2017-08-08] MEDS ORDERED: IBUPROFEN 600 MG TABLET PO ONE (01:45)
[2017-08-08 03:47] VITALS: BP 135/71
== END 2017-08-08 03:53 | disposition home or self-care (01) ==
LOC: EMS 23:31
DX: F25.9 Schizoaffective disorder, unspecified (principal); F19.10 Other psychoactive substance abuse, uncomplicated; F43.10 Post-traumatic stress disorder, unspecified; Z91.14 Patient's other noncompliance with medication regimen; Z59.0 Homelessness; F17.210 Nicotine dependence, cigarettes, uncomplicated
CPT/HCPCS: 99284; 99406